=== PATIENT | female | born 1980 | race Caucasian/White ===

== ENCOUNTER 2016-06-02 21:12 | Emergency (ER) | payer MEDICAID, OTHER ==
[~2016-06-02] VITALS: Ht 165.1 cm; Wt 104.5 kg
[~2016-06-02 21:12] MED LIST: ALBU1AER INH; BENZ100 PO; IBUP800T23 PO; PHEN37.5 PO; PRED20 PO
[2016-06-02 21:23] VITALS: BP 154/86; TEMP 98.3; O2SAT 98
[2016-06-02] MEDS ORDERED: TETANUS/DIPHTHERIA TOXOID ADULT 0.5 ML VIAL IM ONE (21:30)
[2016-06-02] MEDS ORDERED: NAPROXEN 500 MG TAB PO ONE (21:30)
[2016-06-02] MEDS ORDERED: traMADol HCL 50 MG TAB PO ONE (21:30)
[2016-06-02] MEDS ORDERED: PHEN30CA PO (21:31)
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
[2016-06-02] MEDS ORDERED: NAPR500 PO (22:03)
== END 2016-06-02 22:29 | disposition home or self-care (01) ==
LOC: PHEFT 21:12
DX: S96.912A Strain of unspecified muscle and tendon at ankle and foot level, left foot, initial encounter (principal); S90.32XA Contusion of left foot, initial encounter; S90.812A Abrasion, left foot, initial encounter; V89.0XXA Person injured in unspecified motor-vehicle accident, nontraffic, initial encounter; Y93.I9 Activity, other involving external motion; Z23 Encounter for immunization
CPT/HCPCS: 73610; 73630; 90471; 90714

== ENCOUNTER 2017-11-22 19:45 | Inpatient (IN) ==
[2017-11-22] MEDS ORDERED: Sod Chloride 0.9% Inj 1,000 ML IV.CONT PRN (20:19)
[2017-11-22] MEDS ORDERED: Naloxone Inj 0.4 MG/ML Vial IV.PUSH PRN (20:19)
[2017-11-22] MEDS ORDERED: fentaNYL Citrate Inj 100 MCG/2 ML Ampul IV.PUSH PRN (20:19)
[2017-11-22] MEDS ORDERED: Oxytocin 30 Units/500ml Premix 30 UNITS/500 ML BAG IV.SIG ONE (20:19)
[2017-11-22] MEDS ORDERED: Sodium Chlor 0.9% Inj 500 ML IV.SIG PRN (20:19)
[2017-11-22] MEDS ORDERED: Citric Acid/Sodium Citrate Liq 30 ML UDC PO SCH (20:30)
[2017-11-22 21:16] LABS: Baso % (Auto) 0.4 % (0.0-2.0); Eos % (Auto) 0.3 % (0.0-4.0); Hematocrit 31.7 % (35.0-46.0); Hemoglobin 10.8 gm/dL (11.6-15.3); Lymph # (Auto) 2.3 th/mm3 (1.0-4.8); Lymph % (Auto) 22.6 % (9.0-44.0); Mean Corpuscular HGB Conc 34.2 % (32.0-36.0); Mean Corpuscular Hemoglobin 27.3 pg (27.0-34.0); Mean Corpuscular Volume 79.8 fL (80.0-100.0); Mean Platelet Volume 8.5 fL (7.0-11.0); Mono # (Auto) 0.8 th/mm3 (0.0-0.9); Mono % (Auto) 8.3 % (0.0-8.0); Neut % (Auto) 68.4 % (16.0-70.0); Platelet Count 250 th/mm3 (150-450); Red Blood Count 3.97 mil/mm3 (4.00-5.30); Red Cell Distribution Width 13.8 % (11.6-17.2); White Blood Count 10.3 th/mm3 (4.0-11.0)
[2017-11-22 21:24] LABS: Bilirubin,Urine Negative (Negative); Calcium Oxalate Crystals,Urine Moderate /hpf; Clarity,Urine Hazy (Clear); Color,Urine Amber (Yellw/Straw); Glucose,Urine (UA) 50 mg/dL (Negative); Leukocyte Esterase,Urine Negative (Negative); Mucus,Urine Few /lpf (Occasional); Nitrite,Urine Negative (Negative); Specific Gravity,Urine 1.025 (1.002-1.035); Squamous Epithelial Cell,Urine 2 /hpf (0-5); Urobilinogen,Urine 4 or Greater mg/dL (Less than 2)
[2017-11-22 21:28] LABS: Amphetamine Urine With Conf Neg (Neg); Benzodiazepine Urine With Conf Neg (Neg)
[2017-11-23] MEDS ORDERED: Penicillin G Potassium Inj 5,000,000 UNIT in Sodium Chloride 0.9% Inj 100 ML IV.SIG ONE (07:00)
--- NOTE | 2017-11-23 07:30 | P.HPOB ---
History of Present Illness Service: obstetrics Primary Care Physician: NOT REQUIRED Chief Complaint: labor induction for cholestasis of History of Present Illness: (late entry, pt admitted & evaluated 11/22/17) 37 yo with EDC 12/14/17 seen for care with complication of advanced maternal age, chronic migraines for which patient took Fioricet in second trimester, morbid obesity, and early marijuana use. Had abnormal 1h GTT , due to her work schedule was unable to go for 3 hour but did get testing supplies and over a 2 week time frame all values for four times daily testing were normal. When pt seen for 34 week visit she complained of severe itching of hands and feet. Was sent for labs including LFTs and bile acids that resulted 11/22/17 showing all abnormally elevated, ruling in for cholestasis of . Based on gestational age and severity of symptoms as well as multiple other comorbidities discuss with patient regarding recommendation for labor induction , pt agreed and was sent to L&D. At time of induction pt c/o itching, pelvic pressure, denied leakage of fluid, vaginal bleeding, or regular contractions. Feeling movement but less than prior. Pain 2/10 in low pelvis. Weeks Gestation:: 37 Para: 1 : 2 Total # of Miscarriage(s): 0 Total # of Abortions (Spontaneous & Elective): 0 - Inpatient Certification I certify that the inpatient services were ordered in accordance with Medicare regulations governing the order. This includes certification that hospital inpatient services are reasonable and necessary and in the case of services not specified as inpatient-only under 42 CFR 419.22(n), that they are appropriately provided as inpatient services in accordance to with the 2-midnight benchmark under 43 CFR 412.3(e) Estimated Total Length of Stay (Days): 5 Plans for Post Hospital Care: Home Review of Systems All other systems reviewed negative except as stated in HPI PMFSH - History History Provided By: Patient - Medical History Medical History: Medical History (Last Updated 11/23/17 @ 07:22 by Gia Ac MD) Advanced maternal age (AMA) in Obese - Surgical History Surgical History: Surgical History (Last Updated 11/03/17 @ 10:34 by Lety Wilson RN) History of ankle surgery Hx of cholecystectomy - Social History I have reviewed the patient's Social History: Yes - Tobacco History Second Hand Smoke Exposure: No Tobacco Use In Past 30 Days: No Smoking Status: Former smoker Tobacco Type: Cigarettes - Alcohol History How Often Do You Have a Drink Containing Alcohol: Never - Substance Use History Substance History: No History of Abuse - Travel History History of Recent Travel: No Recent Travel in the [place] Within the Last 8 Weeks: No Recent Travel Out of the Country Within the Last 8 Weeks: No Medications and Allergies Active Medications: Active Medications Citric Acid/Sodium Citrate (Sodium Citrate/Citric Acid Liq) 30 ml PO [facility] Stop: 11/26/17 20:29 Fentanyl Citrate (Fentanyl Inj) 50 mcg IV.PUSH Q1H PRN PRN Reason: Pain Scale 3 - 5 Fentanyl Citrate (Fentanyl Inj) 100 mcg IV.PUSH Q1H PRN PRN Reason: PAIN SCALE 6 TO 10 Sodium Chloride (Ns Inj) 500 mls @ 1,000 mls/hr IV.SIG UNSCH PRN PRN Reason: SEE LABEL COMMENTS Lactated Ringer's (Lr 1000 Ml Inj) 1,000 mls @ 125 mls/hr IV.CONT .Q8H [facility] Last Infusion: 11/23/17 00:46 Dose: Infused Lactated Ringer's (Lr 1000 Ml Inj) 1,000 mls @ 3,000 mls/hr IV.SIG UNSCH PRN PRN Reason: compromise or epidural Sodium Chloride (Ns Inj) 1,000 mls @ 100 mls/hr IV.CONT .Q10H PRN PRN Reason: SEE LABEL COMMENTS Penicillin G Potassium 5,000, (000 unit/ Sodium Chloride) 100 mls @ 200 mls/hr IV.SIG ONCE ONE Stop: 11/23/17 07:29 Penicillin G Potassium 2,500, (000 unit/ Sodium Chloride) 100 mls @ 200 mls/hr IV.SIG Q4H [facility] Lidocaine HCl (Xylocaine 1% Inj) 10 ml INFILTRATN PRN PRN PRN Reason: For episiotomy repair Stop: 11/24/17 20:18 Lidocaine HCl (Xylocaine 1% Inj) 0.1 ml I-DERMAL PRN PRN PRN Reason: For IV start Stop: 11/25/17 20:18 Mineral Oil (Muri-Lube Oil) 10 ml TOPICAL PRN PRN PRN Reason: PRN perineal massage Naloxone HCl (Narcan Inj) 0.1 mg IV.PUSH Q2M PRN PRN Reason: for opiate reversal Ondansetron HCl (Zofran Inj) 4 mg IV.PUSH Q6H PRN PRN Reason: NAUSEA OR VOMITING Sodium Chloride (Ns Flush) 2 ml IV.FLUSH BID [facility] Last Admin: 11/22/17 22:51 Dose: Not Given Sodium Chloride (Ns Flush) 2 ml IV.FLUSH PRN PRN PRN Reason: FLUSH AFTER USING IV ACCESS Zolpidem Tartrate (Ambien) 10 mg PO HS PRN PRN Reason: SLEEP Allergies Allergy/AdvReac Type Severity Reaction Status Date / Time No Known Allergies Allergy Verified 11/22/17 20:10 Home Medications Medication Instructions Recorded Confirmed Type PNV cmb#95-ferrous fumarate-FA 1 tab PO DAILY 11/03/17 11/22/17 History [] Exam Vital signs: Vital Signs 11/22/17 20:37 11/22/17 20:45 11/22/17 21:45 Temperature 98.1 F Pulse Rate 88 Respiratory Rate 18 18 Blood Pressure 116/73 11/22/17 22:15 11/22/17 22:45 11/22/17 23:15 Temperature 98.1 F Pulse Rate Respiratory Rate 18 18 18 Blood Pressure 11/22/17 23:16 11/22/17 23:40 11/23/17 00:08 Temperature Pulse Rate 82 Respiratory Rate 18 18 Blood Pressure 119/69 11/23/17 00:36 11/23/17 01:15 11/23/17 01:45 Temperature Pulse Rate Respiratory Rate 18 18 18 Blood Pressure 11/23/17 02:13 11/23/17 02:45 11/23/17 03:15 Temperature Pulse Rate Respiratory Rate 18 18 18 Blood Pressure 11/23/17 03:45 11/23/17 04:15 11/23/17 04:45 Temperature Pulse Rate Respiratory Rate 18 18 18 Blood Pressure 11/23/17 05:15 11/23/17 05:38 11/23/17 05:41 Temperature 98.0 F Pulse Rate 90 Respiratory Rate 18 18 Blood Pressure 94/46 L Intake & Output 11/22/17 11/23/17 11/23/17 18:59 06:59 18:59 Intake Total 1000 / 1000 Balance 1000 / 1000 Weight 120.202 kg Intake: IV 1000 / 1000 LR 1000 mL Inj 1,000 ML @ 125 1000 / 1000 mls/hr IV.CONT .Q8H [facility] Rx#: [id number] - Constitutional mild distress (with itching), obese - Routine HEENT Exam Head: Present: normocephalic, atraumatic Eye: Present: EOMI, PERRL ENT: Present: mucous membranes moist - Routine Neck Exam Present: supple, full ROM - Routine Chest/Breast/Axilla Exam Chest wall: Absent: tenderness, mass - Routine Respiratory Exam Absent: accessory muscle use, decreased breath sounds - Routine Cardiovascular Exam Present: RRR. Absent: bradycardia - Routine Abdominal Exam Present: normoactive bowel sounds Comments: gravid c/w dates - Routine Extremities Exam Present: pulses intact. Absent: cyanosis - Routine Skin Exam Comments: multiple lesions from pt scratching & breaking skin - Routine Neurological Exam Present: alert, oriented X3 Results - Labs CBC & Chem 7: 11/22/17 20:30 Labs: Laboratory Results - last 24 hr 11/22/17 11/22/17 11/22/17 20:00 20:00 20:30 WBC 10.3 RBC 3.97 L Hgb 10.8 L Hct 31.7 L MCV 79.8 L MCH 27.3 MCHC 34.2 RDW 13.8 Plt Count 250 MPV 8.5 Neut % (Auto) 68.4 Lymph % (Auto) 22.6 [place] % (Auto) 8.3 H Eos % (Auto) 0.3 Baso % (Auto) 0.4 Neut # (Auto) 7.0 Lymph # (Auto) 2.3 [place] # (Auto) 0.8 Eos # (Auto) 0.0 Baso # (Auto) 0.0 WBC Differential . Differential Comment Auto diff final Urine Color Roz Urine Clarity Hazy H Urine pH 5.0 Ur Specific Waka 1.025 Urine Protein 30 H Urine Glucose (UA) 50 Urine Ketones 80 or greater H Urine Occult Blood Negative Urine Nitrate Negative Urine Bilirubin Negative Urine Urobilinogen 4 or greater Ur Leukocyte Esterase Negative Urine WBC 4 Ur Squamous Epith Cells 2 Calcium Oxalate Crystal Moderate H Urine Mucus Few H Micro UA Comment Culture not ind Ur Microscopic Review Not Reportable Urine Culture Comments Culture not ind Urine Opiates Screen Neg Ur Barbiturates Screen Neg Ur Amphetamine Screen Neg U Benzodiazepines Scrn Neg Urine Cocaine Screen Neg U Cannabinoids Screen Pos H Blood Type 11/22/17 20:30 WBC RBC Hgb Hct MCV MCH MCHC RDW Plt Count MPV Neut % (Auto) Lymph % (Auto) [place] % (Auto) Eos % (Auto) Baso % (Auto) Neut # (Auto) Lymph # (Auto) [place] # (Auto) Eos # (Auto) Baso # (Auto) WBC Differential Differential Comment Urine Color Urine Clarity Urine pH Ur Specific Waka Urine Protein Urine Glucose (UA) Urine Ketones Urine Occult Blood Urine Nitrate Urine Bilirubin Urine Urobilinogen Ur Leukocyte Esterase Urine WBC Ur Squamous Epith Cells Calcium Oxalate Crystal Urine Mucus Micro UA Comment Ur Microscopic Review Urine Culture Comments Urine Opiates Screen Ur Barbiturates Screen Ur Amphetamine Screen U Benzodiazepines Scrn Urine Cocaine Screen U Cannabinoids Screen Blood Type O Positive Group B Strep: Positive Caprini VTE Risk Assessment Caprini VTE Risk Assessment: No/Low Risk (score <= 1) VTE Pharmacological Exception Reason: Epidural catheter Caprini Risk Assessment Model: Point Value = 1 Point Value = 2 Point Value = 3 Point Value = 5 Age 41-60 Minor surgery BMI > 25 kg/m2 Swollen legs Varicose veins or History of unexplained or recurrent spontaneous Oral contraceptives or hormone replacement Sepsis (< 1 month) Serious lung disease, including pneumonia (< 1 month) Abnormal pulmonary function Acute myocardial infarction Congestive heart failure (< 1 month) History of inflammatory bowel disease Medical patient at bed rest Age 61-74 Arthroscopic surgery Major open surgery (> 45 min) Laparoscopic surgery (> 45 min) Malignancy Confined to bed (> 72 hours) Immobilizing plaster cast Central venous access Age >= 75 History of VTE Family history of VTE Factor V Leiden Prothrombin [id number] Lupus anticoagulant Anticardiolipin antibodies Elevated serum homocysteine Heparin-induced thrombocytopenia Other congenital or acquired thrombophilia Stroke (< 1 month) Elective arthroplasty Hip, pelvis, or leg fracture Acute spinal cord injury (< 1 month) Prophylaxis Regimen: Total Risk Factor Score Risk Level Prophylaxis Regimen 0-1 Low Early ambulation 2 Moderate Order ONE of the following: *Sequential Compression Device (SCD) *Heparin 5000 units SQ BID 3-4 Higher Order ONE of the following medications: *Heparin 5000 units SQ TID *Enoxaparin/Lovenox 40 mg SQ daily (WT < 150 kg, CrCl > 30 mL/min) *Enoxaparin/Lovenox 30 mg SQ daily (WT < 150 kg, CrCl > 10-29 mL/min) *Enoxaparin/Lovenox 30 mg SQ BID (WT < 150 kg, CrCl > 30 mL/min) AND/OR *Sequential Compression Device (SCD) 5 or more Highest Order ONE of the following medications: *Heparin 5000 units SQ TID (Preferred with Epidurals) *Enoxaparin/Lovenox 40 mg SQ daily (WT < 150 kg, CrCl > 30 mL/min) *Enoxaparin/Lovenox 30 mg SQ daily (WT < 150 kg, CrCl > 10-29 mL/min) *Enoxaparin/Lovenox 30 mg SQ BID (WT < 150 kg, CrCl > 30 mL/min) AND *Sequential Compression Device (SCD) Assessment and Plan - Diagnosis (1) Cholestasis during Code(s): O26.619 - Liver and biliary tract disorders in , unspecified trimester; K83.1 - Obstruction of bile duct Status: Acute (2) 37 weeks gestation of Code(s): Z3A.37 - 37 weeks gestation of Status: Acute (3) Advanced maternal age (AMA) in Status: Chronic (4) Obese Code(s): E66.9 - Obesity, unspecified Status: Chronic - Plan 37 yo with EDC 12/14/17 admit 11/22/17 at 36w6d for labor induction due to cholestasis of . 1) IOL: pt aware of risks including risks of distress, failed induction, need for ; plan cervidil overnight on admission then re-evaluate for additional induction method as needed 2) cholestasis of : diaganosed 11/22/17 with elevated LFTs and bile acids; pt with severe itching x 1 week; symptoms should resolve post-delivery 3) GBS positive: for PCN ppx in labor 4) morbid obese: has been receiving monthly growth ultrasounds and weekly testing; last growth at 36 weeks EFW 41%tile 5) advanced maternal age: initial NT scan normal, cfDNA negative, pt declined msAFP testing 6) h/o Fioricet in second trimester and marijuana use in 1st and 2nd trimester: pt counseled on risks of both and states has quit as of 27 week visit 7) status: vertex, female, 8/8 BPP in office, EFW 41%tile, anterior placenta, Cat I tracing on admission Discharge Planning: routine for 2-3d PP (4) Obese Qualifiers: Obesity classification: adult class 3 (BMI >= 40) Serious obesity comorbidity presence: without serious comorbidity Body mass index: BMI 40.0- 44.9
--- NOTE | 2017-11-23 09:58 | P.OBLABOR ---
Subjective Interval history: Quiet night had breakfast induction at 37 0/7 weeks for cholestasis of .Has severe itching and excoriation of lower extremities. She is with one child at 42 weeks weighing 6 1/2 pounds. She is GBS + and receiving PCN. No significant UCs yet. No N,V,blurred vision or RUQT GFM Objective Vital Signs: Vital Signs - 8 hr 11/23/17 02:13 11/23/17 02:45 11/23/17 03:15 Temperature Pulse Rate Respiratory Rate 18 18 18 Blood Pressure 11/23/17 03:45 11/23/17 04:15 11/23/17 04:45 Temperature Pulse Rate Respiratory Rate 18 18 18 Blood Pressure 11/23/17 05:15 11/23/17 05:38 11/23/17 05:41 Temperature 98.0 F Pulse Rate 90 Respiratory Rate 18 18 Blood Pressure 94/46 L 11/23/17 07:31 Temperature 98.0 F Pulse Rate 96 H Respiratory Rate 16 Blood Pressure 110/61 Objective: Pelvic Exam: 1-2 cm/long/-3 cervidil removed pelvis adequate proven to 6 1/2 pounds EFW 6 pounds Strip category one Weeks Gestation: 37 Patient Started Active Labor: No Medical Induction of Labor: Yes Artificial Rupture of Membrane: No Assessment and Plan - Diagnosis (1) Cholestasis during Code(s): O26.619 - Liver and biliary tract disorders in , unspecified trimester; K83.1 - Obstruction of bile duct Status: Acute (2) 37 weeks gestation of Code(s): Z3A.37 - 37 weeks gestation of Status: Acute (3) Advanced maternal age (AMA) in Status: Chronic (4) Obese Code(s): E66.9 - Obesity, unspecified Status: Chronic - Plan 37 yo with EDC 12/14/17 admit 11/22/17 at 36w6d for labor induction due to cholestasis of . 1) IOL: pt aware of risks including risks of distress, failed induction, need for ; plan cervidil overnight on admission then re-evaluate for additional induction method as needed 2) cholestasis of : diaganosed 11/22/17 with elevated LFTs and bile acids; pt with severe itching x 1 week; symptoms should resolve post-delivery 3) GBS positive: for PCN ppx in labor 4) morbid obese: has been receiving monthly growth ultrasounds and weekly testing; last growth at 36 weeks EFW 41%tile 5) advanced maternal age: initial NT scan normal, cfDNA negative, pt declined msAFP testing 6) h/o Fioricet in second trimester and marijuana use in 1st and 2nd trimester: pt counseled on risks of both and states has quit as of 27 week visit 7) status: vertex, female, 09/13 BPP in office, EFW 41%tile, anterior placenta, Cat I tracing on admission 11/23/17 cervidil out begin pitocin epidural as needed birthing ball for now anticipate Discharge Planning: routine for 2-3d PP (4) Obese Qualifiers: Obesity classification: adult class 3 (BMI >= 40) Serious obesity comorbidity presence: without serious comorbidity Body mass index: BMI 40.0- 44.9
[2017-11-23] MEDS ORDERED: Oxytocin 30 Units/500ml Premix 30 UNITS/500 ML BAG ONE (10:09)
[2017-11-23] MEDS ORDERED: Oxytocin 30 Units/500ml Premix 30 UNITS/500 ML BAG IV.SIG PRN (10:10)
[2017-11-23] MEDS ORDERED: Penicillin G Potassium Inj 2,500,000 UNIT in Sodium Chlor 0.9% Inj 100 ML IV.SIG SCH (11:00)
[2017-11-23] MEDS: fentaNYL Citrate Inj 100 MCG/2 ML Ampul IV.PUSH PRN ×2 (17:24→19:27)
[2017-11-23] MEDS ORDERED: fentaNYL 2MCG-Bupiv 0.125% Epi 150 ML EPIDURAL ONE (19:22)
[2017-11-23] MEDS ORDERED: fentaNYL Citrate Inj 100 MCG/2 ML Ampul EPIDURAL ONE (20:17)
[2017-11-23] MEDS ORDERED: fentaNYL 2MCG-Bupiv 0.125% Epi 150 ML EPIDURAL PRN (20:17)
--- NOTE | 2017-11-23 20:42 | P.OBLABOR ---
Subjective Interval history: comfortable now with epidural contractions seem about every 3-4 minutes Objective Vital Signs: Vital Signs - 8 hr 11/23/17 13:49 11/23/17 14:14 11/23/17 14:15 Temperature Pulse Rate 88 100 H 92 H Respiratory Rate 18 Blood Pressure 114/63 95/81 L 120/60 11/23/17 15:00 11/23/17 15:16 11/23/17 16:01 Temperature Pulse Rate 91 H 92 H 98 H Respiratory Rate Blood Pressure 127/61 115/51 L 109/58 L 11/23/17 16:30 11/23/17 16:46 11/23/17 17:00 Temperature 98.4 F Pulse Rate 86 80 81 Respiratory Rate 18 Blood Pressure 120/66 127/66 130/71 11/23/17 17:24 11/23/17 17:51 11/23/17 18:30 Temperature Pulse Rate 82 85 80 Respiratory Rate Blood Pressure 114/66 107/57 L 102/64 11/23/17 18:46 11/23/17 19:01 11/23/17 19:35 Temperature Pulse Rate 87 87 79 Respiratory Rate 16 Blood Pressure 119/96 H 128/64 141/79 H 11/23/17 19:41 11/23/17 19:50 11/23/17 19:54 Temperature 97.9 F Pulse Rate 82 81 Respiratory Rate 18 Blood Pressure 123/74 11/23/17 19:55 11/23/17 20:10 11/23/17 20:20 Temperature Pulse Rate 86 93 H 94 H Respiratory Rate Blood Pressure 110/64 103/65 11/23/17 20:25 11/23/17 20:30 Temperature Pulse Rate 81 93 H Respiratory Rate Blood Pressure 118/68 Objective: Pelvic Exam: 5-6/80/-2 not well applied and asynclitic strip category one Patient Started Active Labor: Yes Medical Induction of Labor: Yes Artificial Rupture of Membrane: Yes Assessment and Plan - Diagnosis (1) Cholestasis during Code(s): O26.619 - Liver and biliary tract disorders in , unspecified trimester; K83.1 - Obstruction of bile duct Status: Acute (2) 37 weeks gestation of Code(s): Z3A.37 - 37 weeks gestation of Status: Acute (3) Advanced maternal age (AMA) in Status: Chronic (4) Obese Code(s): E66.9 - Obesity, unspecified Status: Chronic - Plan 37 yo with EDC 12/14/17 admit 11/22/17 at 36w6d for labor induction due to cholestasis of . 1) IOL: pt aware of risks including risks of distress, failed induction, need for ; plan cervidil overnight on admission then re-evaluate for additional induction method as needed 2) cholestasis of : diaganosed 11/22/17 with elevated LFTs and bile acids; pt with severe itching x 1 week; symptoms should resolve post-delivery 3) GBS positive: for PCN ppx in labor 4) morbid obese: has been receiving monthly growth ultrasounds and weekly testing; last growth at 36 weeks EFW 41%tile 5) advanced maternal age: initial NT scan normal, cfDNA negative, pt declined msAFP testing 6) h/o Fioricet in second trimester and marijuana use in 1st and 2nd trimester: pt counseled on risks of both and states has quit as of 27 week visit 7) status: vertex, female, 09/13 BPP in office, EFW 41%tile, anterior placenta, Cat I tracing on admission 11/23/17 cervidil out begin pitocin epidural as needed birthing ball for now anticipate 11/24/1999 use peanut ball anticipate soon Discharge Planning: routine for 2-3d PP (4) Obese Qualifiers: Obesity classification: adult class 3 (BMI >= 40) Serious obesity comorbidity presence: without serious comorbidity Body mass index: BMI 40.0- 44.9
[2017-11-23] MEDS: Penicillin G Potassium Inj 2,500,000 UNIT in Sodium Chlor 0.9% Inj 100 ML IV.SIG SCH (21:51)
[2017-11-24 01:01] VITALS: RESP 18
[2017-11-24] MEDS ORDERED: Benzocaine 20% Top Spray 60 ML Can TOPICAL PRN ×2 (01:55→02:08)
[2017-11-24] MEDS ORDERED: Zolpidem Tartrate 5 MG Tablet PO PRN ×2 (01:55→02:08)
[2017-11-24] MEDS ORDERED: Bisacodyl 10 MG Supp RECTAL PRN ×2 (01:55→02:08)
[2017-11-24] MEDS ORDERED: Naloxone Inj 0.4 MG/ML Vial IV.PUSH PRN ×2 (01:55→02:08)
[2017-11-24] MEDS ORDERED: Oxytocin 30 Units/500ml Premix 30 UNITS/500 ML BAG IV.CONT PRN ×2 (01:55→02:08)
[2017-11-24] MEDS ORDERED: Witch Hazel 50%/Glyderin 12.5% 40 Pad Jar RECTAL PRN ×2 (01:55→02:08)
[2017-11-24] MEDS ORDERED: Acetaminophen 325 MG Tablet PO PRN ×2 (01:55→02:08)
[2017-11-24] MEDS ORDERED: Penicillin G Potassium Inj 2,500,000 UNIT in Sodium Chlor 0.9% Inj 100 ML IV.SIG SCH (02:04)
--- NOTE | 2017-11-24 02:08 | P.OBDELI ---
Weeks Gestation: 37 Patient Started Active Labor: Yes Medical Induction of Labor: Yes Artificial Rupture of Membrane: Yes Anesthesia: Epidural Episiotomy: none Vaginal Delivery: Normal Presentation: Occiput anterior Nuchal Cord: None Delayed Cord Clamping (45 sec): Yes Placenta: Spontaneous delivery, Intact, 3 vessel cord, Cord pH Laceration: None : Female Infant Female A Weight: 7 kg score (1 min): 9 score (5 min): 9
[2017-11-24] MEDS: Penicillin G Potassium Inj 2,500,000 UNIT in Sodium Chlor 0.9% Inj 100 ML IV.SIG SCH ×4 (04:20→15:32)
--- NOTE | 2017-11-24 04:46 | P.PNOB ---
Subjective Post day: 0 Interval history: Patient sleeping in room, did not wake. Per nursing or complaints. Objective Vital Signs/I&O: Vital Signs 11/23/17 05:15 11/23/17 05:38 11/23/17 05:41 Temperature 98.0 F Pulse Rate 90 Respiratory Rate 18 18 Blood Pressure 94/46 L 11/23/17 07:31 11/23/17 10:46 11/23/17 12:00 Temperature 98.0 F 98.2 F Pulse Rate 96 H 85 88 Respiratory Rate 16 Blood Pressure 110/61 122/70 129/81 11/23/17 12:31 11/23/17 13:49 11/23/17 14:14 Temperature Pulse Rate 89 88 100 H Respiratory Rate 18 Blood Pressure 126/76 114/63 95/81 L 11/23/17 14:15 11/23/17 15:00 11/23/17 15:16 Temperature Pulse Rate 92 H 91 H 92 H Respiratory Rate Blood Pressure 120/60 127/61 115/51 L 11/23/17 16:01 11/23/17 16:30 11/23/17 16:46 Temperature Pulse Rate 98 H 86 80 Respiratory Rate Blood Pressure 109/58 L 120/66 127/66 11/23/17 17:00 11/23/17 17:24 11/23/17 17:51 Temperature 98.4 F Pulse Rate 81 82 85 Respiratory Rate 18 Blood Pressure 130/71 114/66 107/57 L 11/23/17 18:30 11/23/17 18:46 11/23/17 19:01 Temperature Pulse Rate 80 87 87 Respiratory Rate Blood Pressure 102/64 119/96 H 128/64 11/23/17 19:35 11/23/17 19:41 11/23/17 19:50 Temperature Pulse Rate 79 82 81 Respiratory Rate 16 Blood Pressure 141/79 H 123/74 11/23/17 19:54 11/23/17 19:55 11/23/17 20:10 Temperature 97.9 F Pulse Rate 86 93 H Respiratory Rate 18 Blood Pressure 110/64 11/23/17 20:20 11/23/17 20:25 11/23/17 20:30 Temperature Pulse Rate 94 H 81 93 H Respiratory Rate Blood Pressure 103/65 118/68 11/23/17 20:40 11/23/17 20:45 11/23/17 20:50 Temperature Pulse Rate 83 93 H 93 H Respiratory Rate Blood Pressure 102/59 L 11/23/17 21:00 11/23/17 21:01 11/23/17 21:02 Temperature Pulse Rate 84 97 H 80 Respiratory Rate Blood Pressure 110/46 L 108/50 L 11/23/17 21:10 11/23/17 21:35 11/23/17 21:40 Temperature Pulse Rate 83 80 84 Respiratory Rate Blood Pressure 95/50 L 11/23/17 21:45 11/23/17 21:50 11/23/17 21:53 Temperature 98.4 F Pulse Rate 74 77 Respiratory Rate 16 Blood Pressure 107/63 11/23/17 21:55 11/23/17 22:05 11/23/17 22:10 Temperature Pulse Rate 76 77 75 Respiratory Rate Blood Pressure 111/64 11/23/17 22:15 11/23/17 22:16 11/23/17 22:20 Temperature Pulse Rate 74 74 72 Respiratory Rate Blood Pressure 99/63 L 11/23/17 22:25 11/23/17 22:40 11/23/17 22:45 Temperature Pulse Rate 77 77 85 Respiratory Rate Blood Pressure 11/23/17 22:50 11/23/17 22:55 11/23/17 23:00 Temperature Pulse Rate 83 82 86 Respiratory Rate Blood Pressure 96/68 L 110/57 L 11/23/17 23:10 11/23/17 23:15 11/23/17 23:25 Temperature Pulse Rate 91 H 87 86 Respiratory Rate Blood Pressure 108/62 11/23/17 23:30 11/23/17 23:40 11/23/17 23:41 Temperature Pulse Rate 87 90 Respiratory Rate 20 Blood Pressure 116/71 11/23/17 23:45 11/23/17 23:55 11/24/17 00:05 Temperature Pulse Rate 85 91 H 88 Respiratory Rate Blood Pressure 95/61 L 101/68 11/24/17 00:15 11/24/17 00:18 11/24/17 00:20 Temperature Pulse Rate 109 H 98 H 91 H Respiratory Rate Blood Pressure 97/70 L 11/24/17 00:40 11/24/17 00:55 11/24/17 01:00 Temperature Pulse Rate 90 89 100 H Respiratory Rate 18 Blood Pressure 109/68 11/24/17 01:05 11/24/17 01:10 11/24/17 01:20 Temperature Pulse Rate 95 H 88 90 Respiratory Rate Blood Pressure 119/70 11/24/17 01:29 11/24/17 01:35 11/24/17 01:56 Temperature Pulse Rate 93 H 93 H 99 H Respiratory Rate 18 18 Blood Pressure 120/76 148/102 H 11/24/17 01:57 11/24/17 02:01 11/24/17 02:20 Temperature Pulse Rate 88 95 H 90 Respiratory Rate 18 Blood Pressure 118/52 L 114/71 113/70 11/24/17 02:31 11/24/17 02:35 11/24/17 03:01 Temperature Pulse Rate 79 73 Respiratory Rate 18 Blood Pressure 103/57 L 104/57 L 11/24/17 03:20 11/24/17 04:22 11/24/17 04:24 Temperature 98.3 F Pulse Rate 91 H Respiratory Rate 18 18 Blood Pressure 119/73 Intake & Output 11/23/17 11/23/17 11/24/17 06:59 18:59 06:59 Intake Total 1000 / 1000 1100 / 1100 1100 / 1100 Balance 1000 / 1000 1100 / 1100 1100 / 1100 Weight 120.202 kg Intake: IV 1000 / 1000 1100 / 1100 1100 / 1100 LR 1000 mL Inj 1,000 ML @ 125 1000 / 1000 1000 / 1000 1000 / 1000 mls/hr IV.CONT .Q8H [facility] Rx#: [id number] Pfizerpen-G Inj 2,500,000 UNIT 100 / 100 100 / 100 In NS Inj 100 ML @ 200 mls/hr IV.SIG Q4H [facility] Rx#:[id number] Result Diagrams: 11/22/17 20:30 Objective Remarks: Did not examine. Medications and IVs: Active Medications Acetaminophen (Tylenol) 650 mg PO Q4H PRN PRN Reason: PAIN SCALE 1 TO 2 Al Hydroxide/Mg Hydroxide (Milk Of Magnesia Liq) 30 ml PO Q12H PRN PRN Reason: Mild Constipation Benzocaine (Americaine 20% Top [place]) 1 spray TOPICAL Q4H PRN PRN Reason: For Perineum Discomfort Bisacodyl (Dulcolax Supp) 10 mg RECTAL DAILY PRN PRN Reason: SEVERE CONSITIPATION Diphtheria/Pertussis/Tetanus Vacc (Boostrix Vaccine Inj) 0.5 ml IM .ONCE ONE Stop: 11/24/17 16:01 Penicillin G Potassium 2,500, (000 unit/ Sodium Chloride) 100 mls @ 200 mls/hr IV.SIG Q4H [facility] Last Admin: 11/24/17 04:20 Dose: Not Given Oxytocin (Pitocin 30 Units/Ns 500 Ml Premix) 30 units in 500 mls @ 100 mls/hr IV.CONT UNSCH PRN PRN Reason: Heavy bleeding Ibuprofen (Motrin) 800 mg PO Q8H PRN PRN Reason: For Cramping Lactulose (Lactulose Liq) 30 ml PO DAILY PRN PRN Reason: SEVERE CONSITIPATION Measles/Mumps/Rubella Vaccine Live (M-M-R Ii Vaccine Inj) 0.5 ml SQ .ONCE ONE Stop: 11/24/17 16:01 Miscellaneous Information (Misc Information) 1 each OTHER UNSCH PRN PRN Reason: SEE LABEL COMMENTS Stop: 11/24/17 20:17 Miscellaneous Information (Misc Information) 1 each OTHER UNSCH PRN PRN Reason: SEE LABEL COMMENTS Stop: 11/24/17 20:17 Naloxone HCl (Narcan Inj) 0.1 mg IV.PUSH Q2M PRN PRN Reason: for opiate reversal Ondansetron HCl (Zofran Odt) 4 mg PO Q6H PRN PRN Reason: NAUSEA OR VOMITING Vit/Calcium/Iron/Folic Ac (Stuartnatal Plus 3) 1 tab PO DAILY [facility] Senna/Docusate Sodium (Zina-Colace) 1 tab PO BID [facility] Sennosides (Senokot) 17.2 mg PO Q12H PRN PRN Reason: Moderate Constipation Sodium Chloride (Ns Flush) 2 ml IV.FLUSH PRN PRN PRN Reason: FLUSH AFTER USING IV ACCESS Sodium Chloride (Ns Flush) 2 ml IV.FLUSH BID [facility] Witch Airam/Glycerin (Tucks Pads) 1 applicatio RECTAL QID PRN PRN Reason: HEMORRHOIDS Zolpidem Tartrate (Ambien) 5 mg PO HS PRN PRN Reason: SLEEP Assessment and Plan - Diagnosis (1) Cholestasis during Code(s): O26.619 - Liver and biliary tract disorders in , unspecified trimester; K83.1 - Obstruction of bile duct Status: Acute (2) 37 weeks gestation of Code(s): Z3A.37 - 37 weeks gestation of Status: Acute (3) Advanced maternal age (AMA) in Status: Chronic (4) Obese Code(s): E66.9 - Obesity, unspecified Status: Chronic - Plan 37-year-old status post at 37 weeks and 1 day, induction of labor for ICP. 1. day #0: Doing well per nursing, will revisit patient later this afternoon. -Female 2. ICP: Resolved after delivery. 3. Marijuana UDS positive: Social work consulted. (4) Obese Qualifiers: Obesity classification: adult class 3 (BMI >= 40) Serious obesity comorbidity presence: without serious comorbidity Body mass index: BMI 40.0- 44.9
[2017-11-24] MEDS ORDERED: Senna/Docusate Sodium 8.6/50 MG Tablet PO SCH (09:00)
[2017-11-24] MEDS: Senna/Docusate Sodium 8.6/50 MG Tablet PO SCH ×2 (12:21→21:22)
[2017-11-24] MEDS: Prenatal Vit/Ca/Iron/Folic Acid Tablet PO SCH (12:21)
[2017-11-24] MEDS ORDERED: Measles/Mumps/Rubella Vaccine Inj 0.5 ML Vial SQ ONE (16:00)
[2017-11-24] MEDS: Diphtheria/Tetanus/Pertussis Vaccine Inj 0.5 ML Syringe IM ONE (18:15)
[2017-11-25] MEDS: Penicillin G Potassium Inj 2,500,000 UNIT in Sodium Chlor 0.9% Inj 100 ML IV.SIG SCH ×3 (05:18→11:11)
--- NOTE | 2017-11-25 06:11 | P.PNOB ---
Subjective Post day: 2 Interval history: pt sleeping, no changes from yesterday per nursing Objective Vital Signs/I&O: Vital Signs 11/24/17 07:10 11/24/17 20:00 Temperature 98.5 F 98.1 F Pulse Rate 78 80 Respiratory Rate 18 18 Blood Pressure 137/79 120/76 Intake & Output 11/24/17 11/24/17 11/25/17 06:59 18:59 06:59 Intake Total 1100 / 1100 Balance 1100 / 1100 Intake: IV 1100 / 1100 LR 1000 mL Inj 1,000 ML @ 125 1000 / 1000 mls/hr IV.CONT .Q8H [facility] Rx#: [id number] Pfizerpen-G Inj 2,500,000 UNIT 100 / 100 In NS Inj 100 ML @ 200 mls/hr IV.SIG Q4H [facility] Rx#:[id number] Result Diagrams: 11/22/17 20:30 Objective Remarks: pt sleeping did not wake to examine Medications and IVs: Active Medications Acetaminophen (Tylenol) 650 mg PO Q4H PRN PRN Reason: PAIN SCALE 1 TO 2 Last Admin: 11/25/17 05:48 Dose: 650 mg Al Hydroxide/Mg Hydroxide (Milk Of Magnesia Liq) 30 ml PO Q12H PRN PRN Reason: Mild Constipation Benzocaine (Americaine 20% Top [place]) 1 spray TOPICAL Q4H PRN PRN Reason: For Perineum Discomfort Last Admin: 11/24/17 06:07 Dose: 1 spray Bisacodyl (Dulcolax Supp) 10 mg RECTAL DAILY PRN PRN Reason: SEVERE CONSITIPATION Penicillin G Potassium 2,500, (000 unit/ Sodium Chloride) 100 mls @ 200 mls/hr IV.SIG Q4H [facility] Last Admin: 11/25/17 05:18 Dose: Not Given Oxytocin (Pitocin 30 Units/Ns 500 Ml Premix) 30 units in 500 mls @ 100 mls/hr IV.CONT UNSCH PRN PRN Reason: Heavy bleeding Ibuprofen (Motrin) 800 mg PO Q8H PRN PRN Reason: For Cramping Last Admin: 11/24/17 23:20 Dose: 800 mg Lactulose (Lactulose Liq) 30 ml PO DAILY PRN PRN Reason: SEVERE CONSITIPATION Naloxone HCl (Narcan Inj) 0.1 mg IV.PUSH Q2M PRN PRN Reason: for opiate reversal Ondansetron HCl (Zofran Odt) 4 mg PO Q6H PRN PRN Reason: NAUSEA OR VOMITING Vit/Calcium/Iron/Folic Ac (Stuartnatal Plus 3) 1 tab PO DAILY [facility] Last Admin: 11/24/17 12:21 Dose: Not Given Senna/Docusate Sodium (Zina-Colace) 1 tab PO BID [facility] Last Admin: 11/24/17 21:22 Dose: Not Given Sennosides (Senokot) 17.2 mg PO Q12H PRN PRN Reason: Moderate Constipation Sodium Chloride (Ns Flush) 2 ml IV.FLUSH PRN PRN PRN Reason: FLUSH AFTER USING IV ACCESS Sodium Chloride (Ns Flush) 2 ml IV.FLUSH BID [facility] Last Admin: 11/24/17 23:22 Dose: Not Given Witch Airam/Glycerin (Tucks Pads) 1 applicatio RECTAL QID PRN PRN Reason: HEMORRHOIDS Last Admin: 11/24/17 06:08 Dose: 1 applicatio Zolpidem Tartrate (Ambien) 5 mg PO HS PRN PRN Reason: SLEEP Assessment and Plan - Diagnosis (1) Cholestasis during Code(s): O26.619 - Liver and biliary tract disorders in , unspecified trimester; K83.1 - Obstruction of bile duct Status: Acute (2) 37 weeks gestation of Code(s): Z3A.37 - 37 weeks gestation of Status: Acute (3) Advanced maternal age (AMA) in Status: Chronic (4) Obese Code(s): E66.9 - Obesity, unspecified Status: Chronic - Plan 37-year-old status post at 37 weeks and 1 day, induction of labor for ICP. 1. day #1: Doing well per nursing, anticipate d/c home in next 24hrs. -Female 2. ICP: Resolved after delivery. 3. Marijuana UDS positive: Social work consulted. (4) Obese Qualifiers: Obesity classification: adult class 3 (BMI >= 40) Serious obesity comorbidity presence: without serious comorbidity Body mass index: BMI 40.0- 44.9
[2017-11-25] MEDS: Senna/Docusate Sodium 8.6/50 MG Tablet PO SCH (08:32)
[2017-11-25] MEDS: Prenatal Vit/Ca/Iron/Folic Acid Tablet PO SCH (08:32)
[2017-11-25 08:48] VITALS: BP 108/71; PULSE 71; TEMP 98
--- NOTE | 2017-11-25 11:11 | P.DS ---
Date of admission: 11/22/17 19:45 Primary care physician: NOT REQUIRED Brief History from admission: 37 yo admitted for IOL for ICP, had a successful at 37w1d, d/c home on PPD #1. DS: Diagnosis - Discharge Diagnosis (1) Cholestasis during Status: Acute (2) 37 weeks gestation of Status: Acute (3) Advanced maternal age (AMA) in Status: Chronic (4) Obese Status: Chronic DS: Medications - Discharge Medications Prescriptions: ibuprofen 800 mg PO TID-QID PRN #30 tab PRN Reason: Pain DS: Summary Hospital Course: see brief history - Time Spent with Patient Total time spent providing and/or coordinating discharge services: Less than 30 minutes Exam Vital signs: Vital Signs 11/24/17 20:00 11/25/17 08:00 Temperature 98.1 F 98.0 F Pulse Rate 80 71 Respiratory Rate 18 18 Blood Pressure 120/76 108/71 Results Procedures completed during hospitalization: Discharge Plan - Discharge Disposition Patient Disposition: 01 Discharge Home - Discharge Condition Condition: Good - Discharge Order Discharge Orders: Discharge Order (Routine); Ordered 11/25/17 Ordered By: Shabbir Rao - Physicians Team Primary Care Provider: NOT REQUIRED, Attending Provider: Gia Ac - Rxs /Orders / Referrals /Forms Prescriptions: New ibuprofen 800 mg Tablet 800 mg PO TID-QID PRN (Reason: Pain) Qty: 30 RF: 1 Continue PNV [id number] [] 28 mg iron- 800 mcg Tablet 1 tab PO DAILY Referrals: NOT REQUIRED, [Primary Care Provider] - See Instructions - Discharge Instructions Patient Printed Instructions: Vaginal Delivery (DC) Additional Instructions: call to make your 2 week visit
[2017-11-25] MEDS: Diphtheria/Tetanus/Pertussis Vaccine Inj 0.5 ML Syringe IM ONE (12:34)
== END 2017-11-25 12:52 | disposition home or self-care (01) ==
LOC: H2E 19:45 → H1EA 11-24 05:16
PROVIDERS: ADMIT Obstetrics & Gynecology; ATTEND Obstetrics & Gynecology